=== PATIENT | male | born 1955 | race Caucasian/White ===

== ENCOUNTER 2020-09-08 14:23 | Emergency (ER) | payer OTHER ==
[~2020-09-08] VITALS: Ht 167.6 cm; Wt 63.6 kg
[2020-09-08 14:25] VITALS: BP 120/65
== END 2020-09-08 15:05 | disposition home or self-care (01) ==
LOC: EMS 14:29
DX: R06.02 Shortness of breath (principal); Z20.822 Contact with and (suspected) exposure to COVID-19
CPT/HCPCS: 99283; U0003